=== PATIENT | female | born 1965 | race Caucasian/White ===

== ENCOUNTER 2021-12-23 08:08 | Day surgery (SDC) | payer BC ==
[~2021-12-23] VITALS: Ht 157.5 cm; Wt 55.3 kg
[~2021-12-23 08:08] MED LIST: CEFAZOLIN SOD 2 GM in D5W 50 ML IV ONE
[2021-12-23 08:30] LABS: HCG,QUAL RESULT NEGATIVE (NEGATIVE)
[2021-12-23] MEDS ORDERED: ONDANSETRON HCL 4 MG/2 ML VIAL IVP ONE (11:10)
[2021-12-23] MEDS ORDERED: MIDAZOLAM HCL 5 MG/5 ML VIAL IVP ONE (11:10)
[2021-12-23] MEDS ORDERED: NEOSTIGMINE METHYLSULFATE 1 MG/ML, 10 ML VIAL IVP ONE (11:10)
[2021-12-23] MEDS ORDERED: NS 1000 ML IV.SOLN IV ONE (11:10)
[2021-12-23] MEDS ORDERED: GLYCOPYRROLATE 0.2 MG/ML VIAL IJ ONE (11:10)
[2021-12-23] MEDS ORDERED: SUCCINYLCHOLINE CHLORIDE 20 MG/ML(QUELICIN) IVP ONE (11:10)
[2021-12-23] MEDS ORDERED: LR 1,000 ML IV.SOLN IV ONE (11:10)
[2021-12-23] MEDS ORDERED: SEVOFLURANE 15 MIN GAS INH ONE (11:10)
[2021-12-23] MEDS ORDERED: fentaNYL CITRATE/PF 100 MCG/2 ML AMP IVP ONE (11:10)
[2021-12-23] MEDS ORDERED: BUPIVACAINE /EPINEPHRINE/PF 0.25% 30 ML VIAL INJ ONE (11:10)
[2021-12-23] MEDS ORDERED: ROCURONIUM BROMIDE 10 MG/ML (ZEMURON) IV ONE (11:10)
[2021-12-23] MEDS ORDERED: NS IRRIG SOLN 1000 ML IR ONE (11:10)
[2021-12-23] MEDS ORDERED: PROPOFOL 200MG/ 20ML VIAL (DIPRIVAN) IV ONE (11:10)
[2021-12-23] MEDS ORDERED: HYDROmorphone 1 MG/ML INJ. CARTRIDGE IVP PRN (12:15)
[2021-12-23] MEDS ORDERED: METOCLOPRAMIDE HCL 10 MG/2 ML VIAL IVP PRN (12:15)
[2021-12-23] MEDS ORDERED: IBUPROFEN 600 MG TABLET PO ONE (12:15)
[2021-12-23] MEDS ORDERED: KETOROLAC TROMETHAMINE 30 MG VIAL IVP PRN (12:15)
[2021-12-23] MEDS ORDERED: ONDANSETRON HCL 4 MG/2 ML VIAL IVP PRN (12:15)
[2021-12-23] MEDS ORDERED: MEPERIDINE HCL/PF 25 MG/ML DISP.SYRIN IVP PRN (12:15)
[2021-12-23] MEDS ORDERED: KETOROLAC TROMETHAMINE 30 MG VIAL ONE (14:40)
[2021-12-23] MEDS ORDERED: HYDROmorphone 1 MG/ML INJ. CARTRIDGE ONE (15:00)
[2021-12-23 16:07] VITALS: BP_SYST 121
== END 2021-12-23 18:00 | disposition home or self-care (01) ==
LOC: SMU 08:08 → SDS 08:08
PROVIDERS: ATTEND Surgery
DX: K43.2 Incisional hernia without obstruction or gangrene (principal); K42.9 Umbilical hernia without obstruction or gangrene; R10.33 Periumbilical pain; Z20.822 Contact with and (suspected) exposure to COVID-19; I10 Essential (primary) hypertension; F41.9 Anxiety disorder, unspecified; Z79.899 Other long term (current) drug therapy
CPT/HCPCS: 36415 ×2; 49654; 84703; 87426; U0003; C1781; J3490 ×2; J0690; J1885; J2250; J2405; J2704; J0330; J3010; J1170; J7060; J7120; J7030; C1727; J2710; E0190; L8699